=== PATIENT | male | born 1960 | race Caucasian/White ===

== ENCOUNTER 2025-05-03 22:17 | Emergency (ER) | payer BC ==
[~2025-05-03] VITALS: Ht 170.2 cm; Wt 55.8 kg
[2025-05-03 23:02] LABS: BASOPHILS # (AUTO) 0.1 K/uL (0.0-0.2); BASOPHILS % (AUTO) 0.6 % (0.0-2.0); EOSINOPHILS # (AUTO) 0.1 K/uL (0.0-0.7); HEMATOCRIT 41 % (39-51); HEMOGLOBIN 13.9 g/dL (13.5-17.5); LYMPHOCYTES # (AUTO) 1.1 K/uL (0.8-4.8); LYMPHOCYTES % (AUTO) 11.8 % (20.0-44.0); MEAN CORPUSCULAR HEMOGLOBIN 33 PG (26.0-33.0); MEAN CORPUSCULAR HGB CONC 34 g/dl (31.0-36.0); MEAN CORPUSCULAR VOLUME 97 fL (80-96); MONOCYTES % (AUTO) 10.8 % (2.0-12.0); NEUTROPHILS # (AUTO) 7.2 K/uL (1.8-8.9); NEUTROPHILS % (AUTO) 75.8 % (43.0-81.0); PLATELET COUNT (AUTO) 150 K/uL (150-450); RED BLOOD CELL COUNT(AUTO) 4.22 MIL/uL (4.5-6.0); WHITE BLOOD COUNT (AUTO) 9.5 K/uL (4.3-11.0)
[2025-05-03] MEDS ORDERED: hydrALAZINE HCL IV 20 MG VIAL ONE (23:02)
[2025-05-03] MEDS ORDERED: ONDANSETRON HCL/PF 4 MG/2 ML VIAL ONE (23:02)
[2025-05-03 23:11] LABS: CARBON DIOXIDE 32 mmol/L (21-32); CHLORIDE 102 mmol/L (98-107); CREATININE 2.1 mg/dL (0.6-1.3); GLUCOSE 115 mg/dL (74-106); POTASSIUM 3.6 mmol/L (3.5-5.1); SODIUM SERUM 141 mmol/L (136-145); UREA NITROGEN, BLOOD 38 mg/dL (7-18)
[2025-05-03] MEDS: ONDANSETRON HCL/PF - ER 4 MG/2 ML VIAL IV ONE (23:12)
[2025-05-03] MEDS: hydrALAZINE HCL IV 20 MG VIAL IV ONE (23:12)
[2025-05-03 23:24] LABS: NT-PRO BNP 534 pg/mL (0-125)
[2025-05-03] MEDS ORDERED: IOHEXOL-350 100 ML VIAL IV ONE (23:45)
[2025-05-04] MEDS ORDERED: RIVA15TA PO (00:40)
[2025-05-04] MEDS: RIVAROXABAN 15 MG TABLET PO STA (00:52)
[2025-05-04] MEDS: RIVAROXABAN 15 MG TABLET ONE (00:53)
[2025-05-04 01:17] VITALS: BP 173/97; TEMP 98.4; O2SAT 97
[2025-05-04] MEDS ORDERED: TRAZ150T75 PO (22:47)
[2025-05-04] MEDS ORDERED: EMPA10TA PO (22:47)
[2025-05-04] MEDS ORDERED: ATOR40TA PO (22:47)
[2025-05-05] MEDS ORDERED: DONE10TA44 PO (11:40)
[2025-05-05] MEDS ORDERED: CLON0.5T4 PO (11:40)
[2025-05-05] MEDS ORDERED: CITA10TA9 PO (11:40)
[2025-05-05] MEDS ORDERED: FOLI0.8T3 PO (11:40)
[2025-05-05] MEDS ORDERED: GEMTESA PO (11:40)
[2025-05-05] MEDS ORDERED: AMLO2.5T4 PO (11:40)
[2025-05-05] MEDS ORDERED: MEMA10TA56 PO (11:40)
[2025-05-05] MEDS ORDERED: FINA1TAB11 PO (11:40)
[2025-05-05] MEDS ORDERED: CARB1TAB21 PO (11:40)
[2025-05-07] MEDS ORDERED: APIX5TAB4 PO (11:32)
== END 2025-05-04 01:17 | disposition home or self-care (01) ==
LOC: ER 22:20
DX: I26.99 Other pulmonary embolism without acute cor pulmonale (principal); R05.9 Cough, unspecified; R11.0 Nausea; I10 Essential (primary) hypertension; G20.A1 Parkinson's disease without dyskinesia, without mention of fluctuations; Z79.01 Long term (current) use of anticoagulants; Z86.73 Personal history of transient ischemic attack (TIA), and cerebral infarction without residual deficits; Z86.69 Personal history of other diseases of the nervous system and sense organs
CPT/HCPCS: 99285; 96374; 71275; 71045; 96375; 93005; 85025; 80048; 85378; 36415 ×2; 84484 ×2; 83880; J0360; J2405 ×2; Q9967

== ENCOUNTER 2025-05-04 18:09 | Inpatient (IN) | payer BC ==
[~2025-05-04] VITALS: Ht 162.6 cm; Wt 58.1 kg
[~2025-05-04 18:09] MED LIST: RIVA15TA PO
[2025-05-04 18:48] LABS: BASOPHILS % (AUTO) 0.3 % (0.0-2.0); EOSINOPHILS # (AUTO) 0.1 K/uL (0.0-0.7); EOSINOPHILS % (AUTO) 0.6 % (0.0-6.0); HEMATOCRIT 38 % (39-51); HEMOGLOBIN 12.9 g/dL (13.5-17.5); LYMPHOCYTES # (AUTO) 1.1 K/uL (0.8-4.8); LYMPHOCYTES % (AUTO) 10.9 % (20.0-44.0); MEAN CORPUSCULAR HEMOGLOBIN 33 PG (26.0-33.0); MEAN CORPUSCULAR HGB CONC 34 g/dl (31.0-36.0); MEAN CORPUSCULAR VOLUME 98 fL (80-96); MONOCYTES # (AUTO) 1.2 K/uL (0.1-1.30); MONOCYTES % (AUTO) 11.8 % (2.0-12.0); NEUTROPHILS # (AUTO) 7.5 K/uL (1.8-8.9); NEUTROPHILS % (AUTO) 76.4 % (43.0-81.0); PLATELET COUNT (AUTO) 145 K/uL (150-450); RED BLOOD CELL COUNT(AUTO) 3.88 MIL/uL (4.5-6.0); RED CELL DISTRIBUTION WIDTH 13.1 % (11.5-15.0); WHITE BLOOD COUNT (AUTO) 9.9 K/uL (4.3-11.0)
[2025-05-04 18:52] LABS: CALCIUM, SERUM 8.9 mg/dL (8.5-10.1); CREATININE 2.1 mg/dL (0.6-1.3); POTASSIUM 3.8 mmol/L (3.5-5.1)
[2025-05-04 18:55] LABS: INR 1.07 (0.91-1.10); PARTIAL THROMBOPLASTIN TIME 26.1 SEC (24.3-34.3); PROTHROMBIN TIME 11.3 SECS (9.2-11.1)
[2025-05-04] MEDS ORDERED: CT SWABBABLE VALVE TRANS SET 1 EA INFUS.SET MC ONE (19:03)
[2025-05-04] MEDS ORDERED: IOHEXOL-350 100 ML VIAL IV ONE (19:03)
[2025-05-04] MEDS ORDERED: IV NS 0.9% 250 ML IV ONE (19:03)
[2025-05-04 19:49] LABS: APPEARANCE,URINE CLEAR (CLEAR); BILIRUBIN,URINE NEGATIVE (NEGATIVE); BLOOD, URINE TRACE-INTA Ery/uL (NEGATIVE); COLOR,URINE YELLOW (YELLOW); KETONES,URINE NEGATIVE (NEGATIVE); LEUKOCYTE ESTERASE ,URINE NEGATIVE (NEGATIVE); NITRITE, URINE NEGATIVE (NEGATIVE); PH,URINE 6.5 (5.0-8.0); PROTEIN,URINE 2+ mg/dl (NEGATIVE); UGLUCOSE 3+ mg/dL (NEGATIVE); UROBILINOGEN,URINE 0.2 EU/dL (0.2)
[2025-05-04 20:04] LABS: ADD URINE CULTURE NO; BACTERIA,URINE Rare /HPF (None Seen); RBC,URINE 0-2 /HPF (0-2); SQUAMOUS EPITHELIAL CELL,UR 0-2 /HPF (None Seen); WBC,URINE 0-2 /HPF (0-3)
[2025-05-04 21:08] VITALS: O2SAT 96
[2025-05-04 21:35] VITALS: BP 172/105; TEMP 97.5
[2025-05-04] MEDS ORDERED: ONDANSETRON HCL/PF 4 MG/2 ML VIAL IVP PRN (22:00)
[2025-05-04] MEDS ORDERED: MAG HYDROX/AL HYDROX/SIMETH 30 ML UDC PO PRN (22:00)
[2025-05-04] MEDS ORDERED: ACETAMINOPHEN 325 MG TABLET PO PRN (22:00)
[2025-05-04] MEDS ORDERED: MAGNESIUM HYDROXIDE 30 ML UDC PO PRN (22:00)
[2025-05-04] MEDS: RIVAROXABAN 15 MG TABLET PO SCH (22:34)
[2025-05-04] MEDS: IV NS 0.9% 1,000 ML IV SCH (22:41)
[2025-05-04] MEDS ORDERED: TRAZ150T75 PO (22:47)
[2025-05-04] MEDS ORDERED: ATOR40TA PO (22:47)
[2025-05-04] MEDS ORDERED: EMPA10TA PO (22:47)
[2025-05-04] MEDS: TRAZODONE 50 MG TABLET PO PRN (23:18)
[2025-05-05] VITALS (7 sets, daily range): BP systolic 133–174; BP diastolic 88–109; TEMP 97.6–98.6; O2SAT 94–97
[2025-05-05] MEDS: PANTOPRAZOLE 40 MG TABLET.DR PO SCH (06:35)
[2025-05-05 07:13] LABS: BASOPHILS % (AUTO) 0.4 % (0.0-2.0); EOSINOPHILS # (AUTO) 0.1 K/uL (0.0-0.7); EOSINOPHILS % (AUTO) 0.9 % (0.0-6.0); HEMATOCRIT 38 % (39-51); HEMOGLOBIN 12.9 g/dL (13.5-17.5); LYMPHOCYTES # (AUTO) 1.2 K/uL (0.8-4.8); LYMPHOCYTES % (AUTO) 13.7 % (20.0-44.0); MEAN CORPUSCULAR HEMOGLOBIN 33 PG (26.0-33.0); MEAN CORPUSCULAR HGB CONC 34 g/dl (31.0-36.0); MEAN CORPUSCULAR VOLUME 97 fL (80-96); MONOCYTES # (AUTO) 1.2 K/uL (0.1-1.30); MONOCYTES % (AUTO) 13.8 % (2.0-12.0); NEUTROPHILS # (AUTO) 6.1 K/uL (1.8-8.9); NEUTROPHILS % (AUTO) 71.2 % (43.0-81.0); PLATELET COUNT (AUTO) 139 K/uL (150-450); RED BLOOD CELL COUNT(AUTO) 3.88 MIL/uL (4.5-6.0); RED CELL DISTRIBUTION WIDTH 13.2 % (11.5-15.0); WHITE BLOOD COUNT (AUTO) 8.6 K/uL (4.3-11.0)
[2025-05-05] MEDS: RIVAROXABAN 15 MG TABLET PO SCH (09:22)
[2025-05-05 10:38] LABS: ALBUMIN 3.2 g/dL (3.4-5.0); BILIRUBIN,DIRECT 0.1 mg/dL (0.0-0.2); BILIRUBIN,TOTAL 0.6 mg/dL (0.2-1.0); CALCIUM, SERUM 8.9 mg/dL (8.5-10.1); CREATININE 1.9 mg/dL (0.6-1.3); MAGNESIUM 2.6 mg/dL (1.8-2.4); PHOSPHORUS 3.5 mg/dL (2.5-4.9); POTASSIUM 3.4 mmol/L (3.5-5.1); TOTAL PROTEIN, SERUM 7.2 g/dL (6.4-8.2)
[2025-05-05] MEDS: ATORVASTATIN 40 MG TABLET PO SCH (10:56)
[2025-05-05] MEDS ORDERED: FINA1TAB11 PO (11:40)
[2025-05-05] MEDS ORDERED: AMLO2.5T4 PO (11:40)
[2025-05-05] MEDS ORDERED: MEMA10TA56 PO (11:40)
[2025-05-05] MEDS ORDERED: GEMTESA PO (11:40)
[2025-05-05] MEDS ORDERED: CARB1TAB21 PO (11:40)
[2025-05-05] MEDS ORDERED: DONE10TA44 PO (11:40)
[2025-05-05] MEDS ORDERED: CITA10TA9 PO (11:40)
[2025-05-05] MEDS ORDERED: CLON0.5T4 PO (11:40)
[2025-05-05] MEDS ORDERED: FOLI0.8T3 PO (11:40)
[2025-05-05 11:54] LABS: THYROID STIMULATING HORMONE 1.25 uIU/mL (0.358-3.74)
[2025-05-05] MEDS ORDERED: FINASTERIDE (5 MG) 5 MG TABLET PO SCH (13:00)
[2025-05-05] MEDS: CARBIDOPA/LEVODOPA 25/100 MG 1 UDTAB PO SCH (13:03)
[2025-05-05] MEDS: EMPAGLIFLOZIN 10 MG TABLET PO SCH (13:10)
[2025-05-05] MEDS: MEMANTINE HCL 5 MG TABLET PO SCH (13:10)
[2025-05-05] MEDS: DONEPEZIL 5 MG TABLET PO SCH (13:11)
[2025-05-05] MEDS: FOLIC ACID 1 MG TABLET PO SCH (13:11)
[2025-05-05] MEDS: AMLODIPINE BESYLATE 2.5 MG TABLET PO SCH (13:23)
[2025-05-05] MEDS: CITALOPRAM HYDROBROMIDE 10 MG TABLET PO SCH (13:55)
[2025-05-05] MEDS: POTASSIUM CHLORIDE 10 MEQ TABLET.SA PO ONE (15:02)
[2025-05-05] MEDS: FINASTERIDE 1 MG PO SCH (18:41)
[2025-05-05] MEDS: IV NS 0.9% 1,000 ML IV PRN (18:41)
[2025-05-05] MEDS: clonazePAM 0.5 MG TABLET PO SCH (21:11)
[2025-05-05] MEDS: TRAZODONE 50 MG TABLET PO SCH (21:11)
[2025-05-06] VITALS: BP_SYST 133; BP_SYST 162; BP_DIAS 101; BP_DIAS 88; TEMP 97.3; TEMP 97.9; O2SAT 94; O2SAT 96
[2025-05-06 04:00] VITALS: BP 160/100; TEMP 97.8; O2SAT 97
[2025-05-06 06:48] LABS: APPEARANCE,URINE CLEAR (CLEAR); BILIRUBIN,URINE NEGATIVE (NEGATIVE); BLOOD, URINE TRACE-INTA Ery/uL (NEGATIVE); COLOR,URINE YELLOW (YELLOW); KETONES,URINE NEGATIVE (NEGATIVE); LEUKOCYTE ESTERASE ,URINE NEGATIVE (NEGATIVE); NITRITE, URINE NEGATIVE (NEGATIVE); PROTEIN,URINE 2+ mg/dl (NEGATIVE); UGLUCOSE 3+ mg/dL (NEGATIVE); UROBILINOGEN,URINE 0.2 EU/dL (0.2)
[2025-05-06 06:49] LABS: ADD URINE CULTURE NO; BACTERIA,URINE Rare /HPF (None Seen); EOSINOPHIL,URINE None Seen; RBC,URINE 0-2 /HPF (0-2); SQUAMOUS EPITHELIAL CELL,UR Few /HPF (None Seen)
[2025-05-06 06:57] LABS: CREATININE, URINE 104.9 MG/DL (30.0-125.0); URINE TOTAL PROTEIN 163.5 mg/dL (0-11.9)
[2025-05-06 07:11] LABS: BASOPHILS % (AUTO) 0.6 % (0.0-2.0); EOSINOPHILS # (AUTO) 0.1 K/uL (0.0-0.7); EOSINOPHILS % (AUTO) 1.2 % (0.0-6.0); HEMATOCRIT 36 % (39-51); HEMOGLOBIN 12.3 g/dL (13.5-17.5); LYMPHOCYTES # (AUTO) 1.1 K/uL (0.8-4.8); LYMPHOCYTES % (AUTO) 15.5 % (20.0-44.0); MEAN CORPUSCULAR HEMOGLOBIN 33 PG (26.0-33.0); MEAN CORPUSCULAR HGB CONC 34 g/dl (31.0-36.0); MEAN CORPUSCULAR VOLUME 97 fL (80-96); MONOCYTES % (AUTO) 14.6 % (2.0-12.0); NEUTROPHILS # (AUTO) 4.7 K/uL (1.8-8.9); NEUTROPHILS % (AUTO) 68.1 % (43.0-81.0); PLATELET COUNT (AUTO) 141 K/uL (150-450); RED BLOOD CELL COUNT(AUTO) 3.76 MIL/uL (4.5-6.0); RED CELL DISTRIBUTION WIDTH 12.9 % (11.5-15.0); WHITE BLOOD COUNT (AUTO) 6.9 K/uL (4.3-11.0)
[2025-05-06 07:55] LABS: ALBUMIN 3.1 g/dL (3.4-5.0); BILIRUBIN,TOTAL 0.5 mg/dL (0.2-1.0); CALCIUM, SERUM 8.6 mg/dL (8.5-10.1); MAGNESIUM 2.3 mg/dL (1.8-2.4); PHOSPHORUS 3.5 mg/dL (2.5-4.9); POTASSIUM 3.5 mmol/L (3.5-5.1); TOTAL PROTEIN, SERUM 6.8 g/dL (6.4-8.2)
[2025-05-06 08:00] VITALS: BP 155/87; TEMP 98.6; O2SAT 97
[2025-05-06] MEDS: IV 1/2NS 1000 ML 1,000 ML IV PRN (10:23)
[2025-05-06 12:00] VITALS: BP 150/96; TEMP 97.3; O2SAT 96
[2025-05-06 15:26] LABS: CALCIUM, SERUM 8.5 mg/dL (8.5-10.1); CREATININE 1.8 mg/dL (0.6-1.3); POTASSIUM 3.5 mmol/L (3.5-5.1)
[2025-05-06 16:00] VITALS: BP 169/101; TEMP 98.2; O2SAT 96
[2025-05-07 07:07] LABS: PTH, INTACT 39 pg/mL (15-65)
[2025-05-07] MEDS ORDERED: APIX5TAB4 PO (11:32)
[2025-05-08 07:10] LABS: *SPE A/G RATIO 1.1 (0.7-1.7); *SPE ALBUMIN 3.2 g/dL (2.9-4.4); *SPE ALPHA-1-GLOBULIN 0.2 g/dL (0.0-0.4); *SPE ALPHA-2-GLOBULIN 0.6 g/dL (0.4-1.0); *SPE BETA GLOBULIN 0.9 g/dL (0.7-1.3); *SPE GLOBULIN, TOTAL 2.9 g/dL (2.2-3.9); *SPE M-SPIKE Not Observed g/dL (Not Observed); *SPE PROTEIN TOTAL 6.1 g/dL (6.0-8.5); *SPEGAMMA GLOBULIN 1.2 g/dL (0.4-1.8)
== END 2025-05-06 19:00 | disposition home health service (06) | DRG 69 ==
LOC: ER 18:26 → TELE 20:52 → MED 05-06 14:50
PROVIDERS: ADMIT Nurse Practitioner Family; ATTEND Nurse Practitioner Family
DX: G45.9 Transient cerebral ischemic attack, unspecified (principal); I26.99 Other pulmonary embolism without acute cor pulmonale; I69.354 Hemiplegia and hemiparesis following cerebral infarction affecting left non-dominant side; E44.1 Mild protein-calorie malnutrition; E87.0 Hyperosmolality and hypernatremia; E88.09 Other disorders of plasma-protein metabolism, not elsewhere classified; G20.A1 Parkinson's disease without dyskinesia, without mention of fluctuations; R29.810 Facial weakness; I65.22 Occlusion and stenosis of left carotid artery; I12.9 Hypertensive chronic kidney disease with stage 1 through stage 4 chronic kidney disease, or unspecified chronic kidney disease; N18.9 Chronic kidney disease, unspecified; D64.9 Anemia, unspecified; E86.1 Hypovolemia; Z79.01 Long term (current) use of anticoagulants
CPT/HCPCS: 36415; 70450-TC; 70496-TC; 70498-TC; 76770-TC; 80048-TC; 80053-TC; 80076-TC; 81001; 82550-TC; 82570-TC; 82962-TC; 83735-TC; 83970; 84100-TC; 84155; 84165; 84300-TC; 84443-TC; 85025-TC; 85730-TC; 92507-TC; 92521; 93307-TC; 93970-TC; 97110-TC; 97112-TC; 97116-TC; 97530-TC; 97535-TC; A4223; G0378; J3490; J7030; J7050; Q9967